=== PATIENT | male | born 1975 | race Caucasian/White ===

== ENCOUNTER 2017-10-06 20:31 | Emergency (ER) | payer OTHER, BC ==
[~2017-10-06] VITALS: Ht 167.6 cm; Wt 76.6 kg
[2017-10-06 20:41] VITALS: BP 150/102
[2017-10-06] MEDS ORDERED: MOTRIN800 MG PO (21:50)
== END 2017-10-06 22:20 | disposition home or self-care (01) ==
LOC: EME 20:31
DX: S63.502A Unspecified sprain of left wrist, initial encounter (principal); Y09 Assault by unspecified means; Y99.0 Civilian activity done for income or pay; Y92.149 Unspecified place in prison as the place of occurrence of the external cause; Z88.0 Allergy status to penicillin
CPT/HCPCS: 73110; 99281; 99283

== ENCOUNTER 2017-12-31 22:08 | Emergency (ER) | payer OTHER, BC ==
[~2017-12-31] VITALS: Ht 167.6 cm; Wt 80.3 kg
[~2017-12-31 22:08] MED LIST: MOTRIN800 MG PO
[2018-01-01] MEDS ORDERED: NAPROSYN500 MG PO (00:21)
[2018-01-01 00:57] VITALS: BP 127/97
== END 2018-01-01 00:59 | disposition home or self-care (01) ==
LOC: EME 22:08
DX: S50.12XA Contusion of left forearm, initial encounter (principal); S60.041A Contusion of right ring finger without damage to nail, initial encounter; Y04.2XXA Assault by strike against or bumped into by another person, initial encounter; Y92.149 Unspecified place in prison as the place of occurrence of the external cause; Y99.0 Civilian activity done for income or pay
CPT/HCPCS: 73090; 73130; 99281; 99282